=== PATIENT | female | born 1960 | race African-American/Black ===

== ENCOUNTER → 2017-08-13 | Emergency (ER) | payer MEDICAID ==
[~2017-08-13] VITALS: Ht 162.6 cm; Wt 72.6 kg
[~2017-08-13] MED LIST: ALBUTEROL SULF8.5 GM INH; BANOPHEN25 M1 PO; DEPAKOTE ER500 MG ORAL; GABAPENTIN300 MG ORAL; HALOPERIDOL1 MG ORAL; IBUPROFEN400 MG ORAL; Ketorolac 60mg Inj IM ONE; LORAZEPAM2 MG ORAL; QUETIAPINE FUM400 MG ORAL; ROBAXIN-750750 MG PO; SERTRALINE HCL50 MG ORAL
[2017-08-13 18:05] VITALS: BP 145/96
--- NOTE | 2017-08-13 18:11 | Emergency Room Report ---
History of Present Illness General Chief Complaint: Abdominal Pain Source: Medical Record Present Illness HPI 57-year-old female presents to the emergency department complaining of 6/10 in severity right-sided low back pain that radiates into the right leg worse upon walking. Patient also reports lower uterine cramping. Patient denies vaginal bleeding. Patient reports history of fibroids and that she was told that if they continue to cause her pain she is eligible for surgery. She states that she would like to have that done. She denies nausea, vomiting, fevers, chills, recent trauma or fall. She denies night sweats, significant changes in weight, spinal procedures or history of neoplastic disease. She reports history of schizophrenia and bipolar. denies hematuria, dysuria, or frequency. Denies numbness tingling or loss of sensation or gross motor movements of the extremities, incontinence of bowel or bladder. Denies CP, Palpitations, LOC, AMS , dizziness, Changes in Vision, Sensation, paresthesias, or a sudden severe headache. Allergies: Coded Allergies: RISPERIDONE (Unverified Allergy, Intermediate, 08/13/17) Patient History Past Medical History: see triage record Past Surgical History: none Pertinent Family History: none Now: No Reviewed Nursing Documentation: PMH: Agreed, PSxH: Agreed Nursing Documentation-PMH Hx Cardiac Problems: No Hx Hypertension: Yes Hx Pacemaker: No Hx Asthma: No Hx COPD: No Hx Diabetes: No Hx Cancer: No Hx Dialysis: No History Of Psychiatric Problem: Yes - schizo Hx Neurological Problems: No Hx Cerebrovascular Accident: No Hx Seizures: No Review of Systems All Other Systems: negative except mentioned in HPI Physical Exam Vital Signs Date Time Temp Pulse Resp B/P (MAP) Pulse Ox O2 Delivery O2 Flow Rate FiO2 08/13/17 17:25 98.2 86 16 145/96 97 Room Air Sp02 EP Interpretation: reviewed, normal General Appearance: no apparent distress, alert, GCS 15, non-toxic Head: normocephalic, atraumatic Eyes: bilateral eye normal inspection, bilateral eye PERRL ENT: hearing grossly normal, normal voice Neck: full range of motion Respiratory: chest non-tender, lungs clear, normal breath sounds, speaking full sentences Cardiovascular #1: regular rate, rhythm, normal capillary refill Gastrointestinal: normal bowel sounds, non tender, soft, no guarding Rectal: deferred Genitourinary: normal inspection Musculoskeletal: back normal, gait/station normal, normal range of motion, tender - Mild Tenderness to palpation to paraspinal muscles of the lower back, no spinous process tenderness, no midline tenderness. Neurologic: alert, oriented x3, responsive, motor strength/tone normal, sensory intact, normal gait, speech normal Skin: normal color, no rash, warm/dry, well hydrated Lymphatic: no adenopathy Medical Decision Making PA Attestation Dr. Barnes is my supervising Physician whom patient management has been discussed with. Diagnostic Impression: Primary Impression: Back pain Qualified Codes: M54.41 - Lumbago with sciatica, right side; G89.29 - Other chronic pain Additional Impression: History of uterine fibroid ER Course 57-year-old female presents to the emergency department complaining of 6/10 in severity right-sided low back pain that radiates into the right leg worse upon walking. Patient also reports lower uterine cramping. Patient denies vaginal bleeding. Patient reports history of fibroids and that she was told that if they continue to cause her pain she is eligible for surgery. She states that she would like to have that done. She denies nausea, vomiting, fevers, chills, recent trauma or fall. She denies night sweats, significant changes in weight, spinal procedures or history of neoplastic disease. She reports history of schizophrenia and bipolar. denies hematuria, dysuria, or frequency. Denies numbness tingling or loss of sensation or gross motor movements of the extremities, incontinence of bowel or bladder. Denies CP, Palpitations, LOC, AMS , dizziness, Changes in Vision, Sensation, paresthesias, or a sudden severe headache. Ddx considered: epidural abscess, fracture, sprain/strain, meningitis, spinal chord injury, fibroids, GE, colitis, Pyelo, SBO just to name a few. Vital signs reviewed and are WNL during ED visit. Pt. is afebrile with no signs of infection No new symptoms, and denies recent trauma. No saddle anesthesia noted, Pt. denies incontinence Neurovascular is intact FROM , ambulatory with a steady gait. * Mild Tenderness to palpation to paraspinal muscles of the lower back, no spinous process tenderness, no midline tenderness. *Pt. describes pain today as mild-moderate and radiates across the lower back. ORDERS: none warranted at this time. INTERVENTIONS: - 20mg IM Toradol D/W Pt. that for for fibroid removal she needs to see sight effects specialist. -I do not suspect an emergent condition at this time. With current presentation , pt. is stable for close outpatient follow up and conservative treatment. D/ w pt. to return promptly to ED with worsening or new symptoms.- Pt. (and or responsible democrat) verbalizes' understanding and agreement with proposed treatment plan. DISCHARGE: At this time pt. is stable for d/c to home. Will provide printed patient care instructions, and any necessary prescriptions. Care plan and follow up instructions have been discussed with the patient prior to discharge. Last Vital Signs Date Time Temp Pulse Resp B/P (MAP) Pulse Ox O2 Delivery O2 Flow Rate FiO2 08/13/17 17:25 98.2 86 16 145/96 97 Room Air Disposition: HOME, SELF-CARE Condition: Stable Scripts Ibuprofen* (MOTRIN*) 400 Mg Tablet 400 MG ORAL THREE TIMES A DAY, #20 TAB 0 Refills Prov: Ivet He 08/13/17 Methocarbamol* (ROBAXIN-750*) 750 Mg Tablet 750 MG PO TID for 7 Days, #21 TAB 0 Refills Prov: Ivet He.A. 08/13/17 Albuterol Sulfate* (ALBUTEROL SULFATE MDI*) 8.5 Gm Hfa.aer.ad 2 PUFF INH Q3H, #1 INH 0 Refills Prov: Ivet He.A. 08/13/17 Patient Instructions: Back Pain, Adult, [id number], Medical Screening Exam, Uterine Fibroids, [id number] Additional Instructions: Take medications as directed. Follow up with an OBGYN in 3-5 days, even if your symptoms have resolved. * * --Please review list of primary care clinics, if you do not already have a primary care provider Return sooner to ED if new symptoms occur, or current symptoms become worse. - Please note that this Emergency Department Report was dictated using [employer] design engineer technology software, occasionally this can lead to erroneous entry secondary to interpretation by the dictation equipment. Ivet He Aug 13, 2017 18:11
[2017-08-13 19:29] VITALS: BP 136/85
== END | disposition home or self-care (01) ==
LOC: EDUNIT# 17:13 → EDBD 17:32 → EMR 18:02
DX: M54.5 Low back pain (principal); I10 Essential (primary) hypertension; F20.9 Schizophrenia, unspecified
CPT/HCPCS: 96372; 99284